=== PATIENT | female | born 1940 | race Caucasian/White ===

== ENCOUNTER 2016-03-29 06:42 | Day surgery (SDC) | payer MEDICARE, OTHER ==
[2005-12-14 06:33] VITALS: BP 142/69
[2016-03-29] VITALS (9 sets, daily range): BP systolic 111–162; BP diastolic 56–85; PULSE 59–77; TEMP 97.8–98
[~2016-03-29] VITALS: Ht 165.2 cm; Wt 91.0 kg
[~2016-03-29 06:42] MED LIST: ALTACE 10MG TAB10 MG PO; ALTACE5 M1 PO; AMIODARONE200 MG PO; AMLOPIDINE PO; ASPIRIN E.C. 8181 MG PO; BACTRIM DS 8001 TAB PO; CALCIUM CITRAT200 MG PO; CELEXA20 MG PO; COUMADIN4 MG PO; COUMADIN5 MG PO; COUMADIN7.5 MG PO; Cartia XT PO; ELIQUIS 5MG PO; GLUCOPHAGE1000 MG PO; LANTUS100 U/ML SQ; LASIX 20MG TABL20 MG PO; MULTAQ400 MG PO; NATEGLINIDE120 MG PO; NIGHT-TIME COL300 ML PO; NORVASC 5MG5 MG/TAB PO; PLAVIX 75MG TAB75 MG PO; PRAVACHOL 20MG20 MG PO; STARLIX120 MG PO; TAZTIA240; VITAMIN D1000 IU PO; ZOCOR40 MG PO
[2016-03-29 07:45] LABS: INR 1.7 (0.8-3.0); PROTHROMBIN TIME 19.1 SECONDS (9.7-12.8)
[2016-03-29 07:47] LABS: HEMATOCRIT 43.3 % (37.0-47.0); HEMOGLOBIN 13.9 g/dl (12.5-16.0); MEAN CELL VOLUME 89 fl (80.0-100.0); MEAN CORPUSCULAR HEMOGLOBIN 29 pg (27.0-31.0); MEAN CORPUSCULAR HGB CONC 32 g/dl (33.0-37.0); MEAN PLATELET VOLUME 12.3 fl (7.4-10.4); PLATELET COUNT 143 K/mm3 (130-400); RED BLOOD COUNT 4.87 M/mm3 (4.10-5.30); REDCELL DISTRIBUTION WIDTH-CV 12.9 % (11.5-14.5)
[2016-03-29 08:52] LABS: CALCIUM 9.5 mg/dL (8.4-10.2); CREATININE, serum 1.03 mg/dL (0.52-1.25); POTASSIUM 3.7 mmol/L (3.4-5.0)
[2016-03-30 00:04] VITALS: BP 146/56; PULSE 73; TEMP 97.6
[2016-03-30 03:46] VITALS: BP 121/58; PULSE 69; TEMP 97.3
[2016-03-30 07:48] VITALS: BP 139/69; PULSE 58; TEMP 98
[2016-03-30] MEDS ORDERED: CEPHALEXIN500 M1 PO (10:32)
== END 2016-03-30 12:29 | disposition home or self-care (01) ==
LOC: EUO 06:42 → COL.RAD 07:00 → MEDICAL 11:22 → EUO 03-30 12:29
PROVIDERS: Internal Medicine Cardiovascular Disease
DX: T82.120A Displacement of cardiac electrode, initial encounter (principal); I48.2 Chronic atrial fibrillation; Z79.01 Long term (current) use of anticoagulants; I27.2 Other secondary pulmonary hypertension; I49.5 Sick sinus syndrome; I08.3 Combined rheumatic disorders of mitral, aortic and tricuspid valves
CPT/HCPCS: OP; C1769; C1894; C1898; J0690; J1815; J2250; J3010; J3370; J7030; Q9967

== ENCOUNTER 2017-07-23 16:53 | Observation (INO) | payer MEDICARE, OTHER ==
[~2017-07-23] VITALS: Ht 165.1 cm; Wt 87.8 kg
[~2017-07-23 16:53] MED LIST changes: +CARTIA XT240 MG PO; +CELEXA 20MG20 MG/TAB PO; -CELEXA20 MG PO; +CEPHALEXIN500 M1 PO; -Cartia XT PO
[2017-07-23 17:19] LABS: BASO # 0.1 (0.0-0.2); BASO % 0.8 % (0.0-2.0); EOS # 0.2 (0.0-0.7); EOS % 1.7 % (0-4.0); GRAN % 67.2 % (42.2-75.2); HEMATOCRIT 40.7 % (37.0-47.0); HEMOGLOBIN 13.8 g/dl (12.5-16.0); LYMPH # 1.9 (1.2-3.4); LYMPH % 21.6 % (20.0-51.0); MEAN CELL VOLUME 90 fl (80.0-100.0); MEAN CORPUSCULAR HEMOGLOBIN 31 pg (27.0-31.0); MEAN CORPUSCULAR HGB CONC 34 g/dl (33.0-37.0); MEAN PLATELET VOLUME 11.6 fl (7.4-10.4); MONO # 0.8 (0.1-0.6); MONO % 8.5 % (1.7-9.3); PLATELET COUNT 143 K/mm3 (130-400); REDCELL DISTRIBUTION WIDTH-CV 13.5 % (11.5-14.5)
[2017-07-23 17:24] LABS: INR 1.8 (0.8-3.0); PROTHROMBIN TIME 20.2 SECONDS (9.7-12.8)
[2017-07-23 17:27] LABS: PARTIAL THROMBOPLASTIN TIME 43.3 SECONDS (26.0-37.0)
[2017-07-23 17:38] LABS: ALANINE AMINOTRANSFERASE 28 U/L (9-52); ALBUMIN 3.6 gm/dL (3.5-5.0); ALKALINE PHOSPHATASE 72 U/L (50-136); ANION GAP 10 mmol/L (7-16); AST,SGOT 29 U/L (15-37); BILIRUBIN,TOTAL 0.9 mg/dL (0.0-1.0); BLOOD UREA NITROGEN 22 mg/dL (7-17); CALCIUM 9.5 mg/dL (8.4-10.2); CARBON DIOXIDE 26 mmol/L (22-30); CHLORIDE 103 mmol/L (98-107); CREATININE, serum 1.01 mg/dL (0.52-1.25); GLUCOSE 117 mg/dL (74-106); POTASSIUM 4.2 mmol/L (3.4-5.0); SODIUM 139 mmol/L (137-145); TOTAL PROTEIN 7.2 gm/dL (6.4-8.2)
[2017-07-23 17:42] LABS: COLLECTION METHOD CATHETER
[2017-07-23 17:49] LABS: TROPONIN-I < 0.012 ng/mL (0.000-0.034)
[2017-07-23 17:50] LABS: PH 6 (5-8); SQUAMOUS EPITHELIAL None Seen /hpf; URINE APPEARANCE Clear; URINE BACTERIA Many /hpf; URINE BILIRUBIN Negative (NEGATIVE); URINE BLOOD 1+ (NEGATIVE); URINE COLOR Yellow; URINE GLUCOSE Negative (NEGATIVE); URINE KETONE Negative (NEGATIVE); URINE LEUKOCYTE ESTERASE 1+ (NEGATIVE); URINE NITRATE Negative (NEGATIVE); URINE PROTEIN(semi-quant) Negative (NEGATIVE); URINE RBC 0-2 /hpf; URINE UROBILINOGEN >=4.0 mg/dL (NEGATIVE)
[2017-07-23] MEDS ORDERED: DETROL 2MG TAB2 MG PO (17:56)
[2017-07-23] MEDS ORDERED: FOSAMAX 70MG TA70 MG PO (17:58)
[2017-07-23] MEDS ORDERED: LANTUS100 U/ML SQ (19:37)
[2017-07-23 20:08] VITALS: BP 121/82; PULSE 71; TEMP 97.6
[2017-07-23 23:12] VITALS: BP 116/47; PULSE 70; TEMP 97.8
[2017-07-24 03:47] VITALS: BP 131/51; PULSE 68; TEMP 97.8
[2017-07-24 07:31] LABS: BASO % 0.6 % (0.0-2.0); EOS # 0.1 (0.0-0.7); GRAN # 4.5 (1.4-6.5); GRAN % 66.8 % (42.2-75.2); HEMATOCRIT 41.9 % (37.0-47.0); HEMOGLOBIN 13.5 g/dl (12.5-16.0); LYMPH # 1.5 (1.2-3.4); LYMPH % 23.2 % (20.0-51.0); MEAN CELL VOLUME 91 fl (80.0-100.0); MEAN CORPUSCULAR HEMOGLOBIN 29 pg (27.0-31.0); MEAN CORPUSCULAR HGB CONC 32 g/dl (33.0-37.0); MEAN PLATELET VOLUME 11.6 fl (7.4-10.4); MONO # 0.5 (0.1-0.6); MONO % 7.2 % (1.7-9.3); PLATELET COUNT 145 K/mm3 (130-400); RED BLOOD COUNT 4.61 M/mm3 (4.10-5.30); REDCELL DISTRIBUTION WIDTH-CV 13.2 % (11.5-14.5)
[2017-07-24 07:40] LABS: CALCIUM 8.9 mg/dL (8.4-10.2); CHOLESTEROL RISK RATIO 2.5; CREATININE, serum 0.92 mg/dL (0.52-1.25); POTASSIUM 3.9 mmol/L (3.4-5.0)
[2017-07-24 08:27] VITALS: BP 128/50; PULSE 75; TEMP 97.2
[2017-07-24 12:13] VITALS: BP 138/62; PULSE 79; TEMP 97.5
[2017-07-24 15:55] VITALS: BP 123/55; PULSE 84; TEMP 98.2
[2017-07-24 20:09] VITALS: BP 120/58; PULSE 69; TEMP 98
[2017-07-24 23:23] VITALS: BP 127/75; PULSE 81; TEMP 98.6
[2017-07-25 04:39] VITALS: BP 143/62; PULSE 77; TEMP 97.8
[2017-07-25 08:01] VITALS: BP 116/55; PULSE 94; TEMP 98.5
[2017-07-25] MEDS ORDERED: ELIQUIS 5MG PO ×2 (10:33)
[2017-07-25] MEDS ORDERED: CEPHALEXIN500 M1 PO (10:36)
== END 2017-07-25 13:06 | disposition home or self-care (01) ==
LOC: COL.ER 16:53 → MEDICAL 18:05
PROVIDERS: Emergency Medicine; Nurse Practitioner
DX: G45.9 Transient cerebral ischemic attack, unspecified (principal); N39.0 Urinary tract infection, site not specified; I48.2 Chronic atrial fibrillation; E11.9 Type 2 diabetes mellitus without complications; I27.20 Pulmonary hypertension, unspecified; I10 Essential (primary) hypertension; I08.3 Combined rheumatic disorders of mitral, aortic and tricuspid valves; F32.9 Major depressive disorder, single episode, unspecified; E78.5 Hyperlipidemia, unspecified; Z79.82 Long term (current) use of aspirin; Z79.4 Long term (current) use of insulin; Z79.01 Long term (current) use of anticoagulants; Z88.0 Allergy status to penicillin; Z90.710 Acquired absence of both cervix and uterus; Z90.49 Acquired absence of other specified parts of digestive tract; Z95.0 Presence of cardiac pacemaker; Z83.3 Family history of diabetes mellitus; Z82.3 Family history of stroke; Z82.49 Family history of ischemic heart disease and other diseases of the circulatory system
CPT/HCPCS: A9585; G0378; G0379; G8978-GP; G8979-GP; G8987-GO; G8988-GO; G9163-GN; G9164-GN; J0696; J7030

== ENCOUNTER 2018-10-05 10:19 | Inpatient (IN) | payer MEDICARE, OTHER ==
[2018-10-05] VITALS (433 sets, daily range): BP systolic 134–154; BP diastolic 59–67; PULSE 99–111; TEMP 98.1–98.4; O2SAT 84–100
[~2018-10-05] VITALS: Ht 165.1 cm; Wt 77.0 kg
[~2018-10-05 10:19] MED LIST changes: +DETROL 2MG TAB2 MG PO; +FOSAMAX 70MG TA70 MG PO
[2018-10-05 11:01] LABS: BASO % 0.2 % (0.0-2.0); GRAN # 13.4 (1.4-6.5); GRAN % 94.5 % (42.2-75.2); HEMATOCRIT 43.8 % (37.0-47.0); HEMOGLOBIN 14.2 g/dl (12.5-16.0); LYMPH # 0.3 (1.2-3.4); LYMPH % 1.9 % (20.0-51.0); MEAN CELL VOLUME 89 fl (80.0-100.0); MEAN CORPUSCULAR HEMOGLOBIN 29 pg (27.0-31.0); MEAN CORPUSCULAR HGB CONC 32 g/dl (33.0-37.0); MEAN PLATELET VOLUME 11.9 fl (7.4-10.4); MONO # 0.4 (0.1-0.6); PLATELET COUNT 146 K/mm3 (130-400); RED BLOOD COUNT 4.91 M/mm3 (4.10-5.30); REDCELL DISTRIBUTION WIDTH-CV 13.3 % (11.5-14.5)
[2018-10-05 11:27] LABS: BILIRUBIN,TOTAL 1.5 mg/dL (0.0-1.0); C-REACTIVE PROTEIN 2.4 mg/dL (0.0-0.9); CALCIUM 9.1 mg/dL (8.4-10.2); CREATININE, serum 0.91 (0.52-1.25); POTASSIUM 3.9 mmol/L (3.4-5.0); TOTAL PROTEIN 7.2 gm/dL (6.4-8.2)
[2018-10-05 12:13] LABS: MUCOUS Present /lpf; PH 5 (5-8); SQUAMOUS EPITHELIAL 0-2 /hpf; URINE APPEARANCE Clear; URINE BACTERIA None Seen /hpf; URINE BILIRUBIN Negative (NEGATIVE); URINE BLOOD 1+ (NEGATIVE); URINE COLOR Yellow; URINE GLUCOSE 2+ (NEGATIVE); URINE KETONE 1+ (NEGATIVE); URINE LEUKOCYTE ESTERASE Negative (NEGATIVE); URINE NITRATE Negative (NEGATIVE); URINE PROTEIN(semi-quant) 1+ (NEGATIVE); URINE RBC 0-2 /hpf
[2018-10-05 15:14] LABS: COLLECTION METHOD CATHETER
--- NOTE | 2018-10-05 15:58 | NUR ---
Pt admitted to ICU bed 2 from floor. Pt arrived via stretcher and placed on monitoring tech. Vitals stable upon arrival. Dr. Aguilera notified of Pt admission to unit.
--- NOTE | 2018-10-05 16:19 | NUR ---
PT CAME UP FROM ER WITH HORTENCIA [facility] VIA GURNEY. DR. IZQUIERDO CAME BY TO SEE THE PT AND ADVISED NOT TO TAKE THE PT OFF THE GURNEY UNTIL WE DID THE EKG, IF IT WAS ABNORMAL THE PT WAS GOING TO ICU. CT CALLED AND ASKED HOW THE PT TRANSFERED. ADVISED THAT THE PT WAS ON THE THE ER GURNEY AT THIS TIME AND WAS NOT SURE HOW SHE TRANSFERED. CT ASKED TO LEAVE ON GURNEY AND TAKE HER RIGHT DOWN TO CT. RAMILA BURNETT ADVISED THAT HE NEEDED THE GURNEY BACK. DR. IZQUIERDO CAME IN THE ROOM AND SAW THE EKG RESULTS AND ADVISED THAT SHE WOULD BE TALKING TO DR. AYALA, BUT THE PT NEEDS TO GO TO ICU AND NOT STAY ON THIS FLOOR. WENT WITH HORTENCIA [facility]GRATH TO TAKE PT DOWN TO CT. CALLED CHARGE LOLI AND ADVISED WHAT WAS GOING ON BECAUSE I WAS LEAVING THE FLOOR WITH THE PT. LOLI CHARGE CALLED ME BACK IN ROUTE AND ADVISED THAT SHE RECEIVED A CALL FROM [facility] THAT THE PT WAS GOING TO ICU BED 2. ASSISTED WITH TAKEING PT TO CT FOR A HEAD CT AND PT WAS DONE ASSISTED BACK ON GURNEY AND HELPED ROLL PT TO ICU BED 2, SINCE WE WERE ALREADY THERE. EKG WAS SUPPOSE TO HAVE BEEN DONE IN THE ER THE EKG BEFORE SHE WAS BROUGHT UP TO MEDICAL BECAUSE THAT WAS THE DETERMINING FACTOR OF WHERE SHE WAS GOING TO GO. GAVE REPORT IN ICU TO NATASHA FERRER.
--- NOTE | 2018-10-05 18:00 | NUR ---
Admission assessment complete at this time. Plan of care reviewed at bedside with patient. Additional time taken to address any other needs or concerns. Vitals stable at this time. Denies pain or any other discomfort. Bed in low position, call light within reach, will continue to monitor.
--- NOTE | 2018-10-05 19:00 | NUR ---
Report received from Eulogio. Pt resting in bed with glasses on at this time with no complaints noted.
--- NOTE | 2018-10-05 19:06 | NUR ---
Bedside report given to NABIL Muhammad.
--- NOTE | 2018-10-05 19:45 | NUR ---
Pt assessment complete. Glasses in place on face. Pt denies any pain although reports aching in the right leg with no abnormal assessment findings to location at this time. Will continue to assess aching. Pt was noted to have dried crusting to bilateral lower extremities and although refused a bed bath, warm wipes were used in order to clean as much as possible off skin. Abrasions are noted to anterior feet as well as bilateral upper arms with generalized scattered bruising with various sizes and degrees of healing. Brief was checked and dry at this time.
[2018-10-06] VITALS (326 sets, daily range): BP systolic 93–152; BP diastolic 40–89; PULSE 64–101; TEMP 97.6–98.7; O2SAT 87–100
[2018-10-06 05:31] LABS: BASO % 0.4 % (0.0-2.0); GRAN # 7.1 (1.4-6.5); GRAN % 86.2 % (42.2-75.2); HEMOGLOBIN 12.9 g/dl (12.5-16.0); LYMPH # 0.4 (1.2-3.4); LYMPH % 4.5 % (20.0-51.0); MEAN CELL VOLUME 91 fl (80.0-100.0); MEAN CORPUSCULAR HEMOGLOBIN 29 pg (27.0-31.0); MEAN CORPUSCULAR HGB CONC 32 g/dl (33.0-37.0); MEAN PLATELET VOLUME 11.8 fl (7.4-10.4); MONO # 0.7 (0.1-0.6); MONO % 8.5 % (1.7-9.3); PLATELET COUNT 109 K/mm3 (130-400); RED BLOOD COUNT 4.41 M/mm3 (4.10-5.30); REDCELL DISTRIBUTION WIDTH-CV 13.5 % (11.5-14.5)
--- NOTE | 2018-10-06 07:15 | NUR ---
Report provided to Michael FERRER.
[2018-10-06] MEDS ORDERED: ELIQUIS 5MG PO (07:56)
--- NOTE | 2018-10-06 09:00 | NUR ---
Pt's brother called to cofirm Eliquis dose and frequency Hazel Graff (daughter) called and updated as well. Questions invited and answered
[2018-10-06 09:23] LABS: ALBUMIN 3.1 gm/dL (3.5-5.0); BILIRUBIN,TOTAL 0.7 mg/dL (0.0-1.0); CALCIUM 7.7 mg/dL (8.4-10.2); CREATININE, serum 0.81 (0.52-1.25); POTASSIUM 3.2 mmol/L (3.4-5.0); TOTAL PROTEIN 5.8 gm/dL (6.4-8.2)
--- NOTE | 2018-10-06 13:14 | NUR ---
Report phoned to NABIL Garcias on [facility] - pt to transfer rm [id number] once room is clean
--- NOTE | 2018-10-06 13:38 | NUR ---
SW met with the patient to discuss a discharge plan. The pt lives in [place] with her brother/DPOA-HC, Colt Horton. The pt has a cane and a walker. The pt reports she takes sponge baths and uses briefs and has never had home health services. The pt's PCP is Dr. Gray and pt receives medications from [facility]. Patient reports her son Kulwinder Martinez used to hop picker medications but she states her son recently . SW to follow up with [facility] to inquire about medication delivery. The pt has advanced directives in the EMR. SW will continue to follow to assist with discharge recommendations.
--- NOTE | 2018-10-06 14:30 | NUR ---
Pt up to medical unit from ICU. Pt alert. Pt rates pain 8/10 headache and right leg. Pt denies SOB at rest. Pt IV site had leaked some so site cleansed and flushed and IV patent and redressed. NO redness or infiltration at site noted. 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 Pt has call light in reach and denies needs at this time. Medications reviewed to the best of pt's knowledge.
--- NOTE | 2018-10-06 17:01 | NUR ---
Updated Dr. Townsend on pt's K+ level and orders placed by Dr. Townsend.
--- NOTE | 2018-10-06 18:58 | NUR ---
Pt incontinent of urine and ragini cares provided. Pt resting in bed with call light in reach. Ordered Glucerna shake for pt.
--- NOTE | 2018-10-06 18:59 | NUR ---
Pt report given to Laverne FERRER.
--- NOTE | 2018-10-06 20:00 | NUR ---
Shift assessment complete. Pt resting in bed, awake, a&o c some int confused statements, cooperative c cares. Pt denies pain or other c/o at this time. IV patent. Tele in place. Pt denies needs. Call light in reach, bed alarm on. Will continue to monitor.
[2018-10-07] VITALS (10 sets, daily range): BP systolic 11–128; BP diastolic 52–68; PULSE 71–104; TEMP 97.4–98.3
--- NOTE | 2018-10-07 04:49 | NUR ---
Pt resting in bed, condition unchanged. Pt had 1x episode of vommiting at 0330, pt reports sudden onset nausea then vommited moderate amount of dark brown emesis in bed. Emesis appeared et smelled like ensure pt had been drinking. Pt also incont urine et loose BM at that time. Pt denied continued nausea p episode. Linnens changed et complete bed bath provided. Pt has otherwise rested well c very few needs this shift. Denies needs at this time. Denies continued nausea. Call light in reach, bed alarm on.
--- NOTE | 2018-10-07 08:00 | NUR ---
Assessment completed, alert/oriented, vital signs stable, patient is having coffee ground emesis this morning/ notified hospitalist and garto-occult sample collected, heart RRR, lung sCTA/ no resp.difficulty, patient has poor veins and we are unable to get lab or start a new IV at this time/ I have obtained an order for PICC line placmenet and notified AIVS, chriss was given an patient is resting quietly at thi stime, will continue to monitor
[2018-10-07 08:04] LABS: GASTROCCULT NEGATIVE; pH GASTRIC CONTENTS 3
--- NOTE | 2018-10-07 09:19 | NUR ---
SW rounded with the team. A GI consult is being ordered. SW will continue to follow to assist with a safe discharge.
[2018-10-07 13:25] LABS: BASO % 0.3 % (0.0-2.0); EOS # 0.2 (0.0-0.7); GRAN # 6.3 (1.4-6.5); GRAN % 83.4 % (42.2-75.2); HEMATOCRIT 37.7 % (37.0-47.0); HEMOGLOBIN 12.2 g/dl (12.5-16.0); LYMPH # 0.5 (1.2-3.4); LYMPH % 6.4 % (20.0-51.0); MEAN CELL VOLUME 90 fl (80.0-100.0); MEAN CORPUSCULAR HEMOGLOBIN 29 pg (27.0-31.0); MEAN CORPUSCULAR HGB CONC 32 g/dl (33.0-37.0); MONO # 0.6 (0.1-0.6); MONO % 7.6 % (1.7-9.3); PLATELET COUNT 100 K/mm3 (130-400); RED BLOOD COUNT 4.19 M/mm3 (4.10-5.30); REDCELL DISTRIBUTION WIDTH-CV 13.9 % (11.5-14.5)
[2018-10-07 13:44] LABS: CALCIUM 7.8 mg/dL (8.4-10.2); CREATININE, serum 0.7 (0.52-1.25); POTASSIUM 3.5 mmol/L (3.4-5.0)
--- NOTE | 2018-10-07 20:00 | NUR ---
Patient assessed at this time. Alert and oriented x 4. Patient drowsy, but awakens easily to verbal stimuli. Double lumen PICC to RUE. NS running at 75 ml/hr. Denies having pain and discomfort. Denies having SOB and dyspnea. Oxygen on at 2 L/min via NC. LS CTA in upper lobes, diminished in lower lobes. Heart rate irregular. Telemetry in place. Heart with regular rate and rhythm. Capillary refill less than 3 seconds. Non-tenting skin turgor. BS hyperactive x 4. Abdomen soft and non-tender. Patient incontinent of bowel and bladder. Perineal hygiene care provided. Patient continues to have loose stools 1+ edema to BLE. Patient states that she is tired. Denies having any questions, needs, or concerns at this time. Resting in bed with call light within reach.
--- NOTE | 2018-10-07 22:51 | NUR ---
Telemetry called. Patient's HR has been going into the 130s. Called [facility]. Order for STAT EKG. EKG is being obtained at this time.
--- NOTE | 2018-10-07 23:16 | NUR ---
EKG back, and called to [facility]. New order received for 5 mg Metoprolol IV now. STAT labs drawn via PICC and Metoprolol given as ordered. Awaiting lab results at this time.
[2018-10-07 23:26] LABS: BASO % 0.3 % (0.0-2.0); EOS # 0.1 (0.0-0.7); EOS % 1.1 % (0-4.0); GRAN # 7.1 (1.4-6.5); GRAN % 88.3 % (42.2-75.2); HEMATOCRIT 36.8 % (37.0-47.0); HEMOGLOBIN 11.7 g/dl (12.5-16.0); LYMPH # 0.3 (1.2-3.4); LYMPH % 3.9 % (20.0-51.0); MEAN CELL VOLUME 92 fl (80.0-100.0); MEAN CORPUSCULAR HEMOGLOBIN 29 pg (27.0-31.0); MEAN CORPUSCULAR HGB CONC 32 g/dl (33.0-37.0); MEAN PLATELET VOLUME 11.8 fl (7.4-10.4); MONO # 0.5 (0.1-0.6); MONO % 6.1 % (1.7-9.3); PLATELET COUNT 83 K/mm3 (130-400); RED BLOOD COUNT 4.02 M/mm3 (4.10-5.30); REDCELL DISTRIBUTION WIDTH-CV 13.9 % (11.5-14.5)
[2018-10-07 23:36] LABS: CALCIUM 7.5 mg/dL (8.4-10.2); CREATININE, serum 0.64 (0.52-1.25); MAGNESIUM 1.8 mg/dL (1.6-2.3); POTASSIUM 3.9 mmol/L (3.4-5.0)
--- NOTE | 2018-10-07 23:50 | NUR ---
VS: 110/58 HR upper 90s to upper 100s. Labs back and called to [facility]. New order for 1 gram Magnesium. Started at this time. Patient reports she is feeling ok. Voices no questions, needs, or concerns at this time. Resting in bed with eyes closed. Call light within reach.
[2018-10-08 05:13] VITALS: BP 141/66; PULSE 96; TEMP 97.6
--- NOTE | 2018-10-08 05:44 | NUR ---
Patient has been having loose stools throughout the night. Denies having upset stomach and pain. Sample sent to lab for GI panel that had not been received. NS continues to run at 75 ml/hr. Voices no questions, needs, or concerns. Resting in bed with eyes closed. Call light is within reach.
[2018-10-08 06:35] LABS: BASO % 0.3 % (0.0-2.0); EOS # 0.1 (0.0-0.7); EOS % 1.6 % (0-4.0); GRAN # 6.2 (1.4-6.5); GRAN % 85.3 % (42.2-75.2); HEMATOCRIT 37.8 % (37.0-47.0); HEMOGLOBIN 11.9 g/dl (12.5-16.0); LYMPH # 0.5 (1.2-3.4); LYMPH % 7.1 % (20.0-51.0); MEAN CELL VOLUME 92 fl (80.0-100.0); MEAN CORPUSCULAR HEMOGLOBIN 29 pg (27.0-31.0); MEAN CORPUSCULAR HGB CONC 32 g/dl (33.0-37.0); MEAN PLATELET VOLUME 11.8 fl (7.4-10.4); MONO # 0.4 (0.1-0.6); MONO % 5.3 % (1.7-9.3); PLATELET COUNT 100 K/mm3 (130-400); RED BLOOD COUNT 4.09 M/mm3 (4.10-5.30); REDCELL DISTRIBUTION WIDTH-CV 13.9 % (11.5-14.5)
[2018-10-08 06:50] LABS: CALCIUM 7.6 mg/dL (8.4-10.2); CREATININE, serum 0.67 (0.52-1.25); POTASSIUM 3.7 mmol/L (3.4-5.0)
[2018-10-08 07:31] VITALS: BP 118/58; PULSE 103; TEMP 97.9
[2018-10-08 11:09] VITALS: BP 114/50; PULSE 99; TEMP 99
--- NOTE | 2018-10-08 11:17 | NUR ---
SW attended clinical rounds. Both the doctor and PT are recommended post acute rehab. Patient is not agreeable to SNF and reports "I do not think I need it." SW informed patient of the benefits of SNF and also that at this time, going home is not a safe option. Patient continued to refuse. Patient was given medicare.gov resource list but did not choose any facilites. Colleen requested SW contact her brother, Arias, to inform him of recommendations. ABRAHAM attempted to contact patient's brother, Arias ([phone]). SW left a message.
--- NOTE | 2018-10-08 13:36 | NUR ---
ABRAHAM met with patient and brother/DPOA, Colt, to discuss discharge recommendations. ABRAHAM explained to Colt that patient preet benefit from continued therapy in a facility and that returning home is not a safe option at this time. Patient's daughter, Hazel, was also involved via phone. Both aHzel and Colt would like patient to go to a SNF for a skilled stay. After speaking with both Hazel and Colt, patient is agreeable. Patient and Colt reviewed medicare.gov resource list and chose 1. [facility] and 2. [facility]. Patient requested Colt sign choice form. Colt signed and was provided a copy. ABRAHAM faxed referrals and contacted both facilities.
--- NOTE | 2018-10-08 15:11 | NUR ---
ABRAHAM spoke with [facility]. Patient was accepted and they can admit tomorrow.
--- NOTE | 2018-10-08 15:15 | NUR ---
SW left message with patient's brother, Colt, informing him of patient acceptance to [facility]. SW also informed patient.
[2018-10-08 16:46] VITALS: BP 122/54; PULSE 91; TEMP 98.3
--- NOTE | 2018-10-08 18:06 | NUR ---
Patient is in bed, has a visitor. Was assisted in ordering supper. No needs verbalized. Call light and personal items are within reach.
[2018-10-08 20:33] VITALS: BP 147/62; PULSE 89; TEMP 99.2
[2018-10-09 00:11] VITALS: BP 119/64; PULSE 77; TEMP 99.2
--- NOTE | 2018-10-09 01:30 | NUR ---
Patient has been denying having pain and discomfort. Has been on room air so far this shift. Voices no questions, needs, or concerns at this time. Resting in bed with call light within reach. See assessment.
[2018-10-09 03:40] VITALS: BP 128/78; PULSE 72; TEMP 97.9
--- NOTE | 2018-10-09 05:18 | NUR ---
Patient has denied having pain and discomfort. Patient has not had any diarrhea so far this shift. NS continues to run at 75 ml/hr to PICC to E. Voices no questions, needs, or concerns at this time. Resting in bed wtih call light within reach.
[2018-10-09 06:14] LABS: BASO % 0.4 % (0.0-2.0); EOS # 0.1 (0.0-0.7); EOS % 1.8 % (0-4.0); GRAN # 6.2 (1.4-6.5); GRAN % 80.3 % (42.2-75.2); HEMATOCRIT 34.1 % (37.0-47.0); LYMPH # 0.7 (1.2-3.4); LYMPH % 8.8 % (20.0-51.0); MEAN CELL VOLUME 90 fl (80.0-100.0); MEAN CORPUSCULAR HEMOGLOBIN 29 pg (27.0-31.0); MEAN CORPUSCULAR HGB CONC 32 g/dl (33.0-37.0); MEAN PLATELET VOLUME 11.4 fl (7.4-10.4); MONO # 0.6 (0.1-0.6); MONO % 8.2 % (1.7-9.3); PLATELET COUNT 95 K/mm3 (130-400)
[2018-10-09 06:24] LABS: CREATININE, serum 0.7 (0.52-1.25)
[2018-10-09 06:25] LABS: CALCIUM 7.8 mg/dL (8.4-10.2); POTASSIUM 3.9 mmol/L (3.4-5.0)
--- NOTE | 2018-10-09 07:00 | NUR ---
Report received from Sharda, NR. PT in bed resting with eyes closed, will continue to monitor.
[2018-10-09 07:16] VITALS: BP 126/55; PULSE 83; TEMP 97.9
[2018-10-09] MEDS ORDERED: CARDIZEM CD 30300 MG PO (07:22)
[2018-10-09] MEDS ORDERED: ASPIRIN E.C. 8181 MG PO (07:23)
--- NOTE | 2018-10-09 09:25 | NUR ---
Assessment charted. Pt in bed resting, awakens upon verbal stimulation but states she feels tired today. Denies any pain, oriented x4. Has little appetite, states she is full from OJ she drank this am. Hospitalist aware of low WBG this am. PICC to [facility] good blood return and flush. Will continue to monitor.
[2018-10-09] MEDS ORDERED: NOVOLOG 100U100 U/M1 SQ (09:34)
[2018-10-09] MEDS ORDERED: PROTONIX 40MG T40 MG PO (09:46)
[2018-10-09] MEDS ORDERED: CLEOCIN HCL300 MG PO (09:48)
[2018-10-09 11:12] VITALS: BP 115/52; PULSE 91; TEMP 97.3
--- NOTE | 2018-10-09 11:29 | NUR ---
ABRAHAM attended clinical rounds. Patient will discharge today to SNF. [facility] is unable to accept patient today. ABRAHAM spoke with patient and brother, Colt, about this. Patient and brother are agreeable with patient going to her second choice, [facility]. ABRAHAM contacted Thiago with [facility] and informed him of the change. Thiago reports they can accept today. Thiago will contact ABRAHAM with a time for transportation. ABRAHAM presented IM to patient. Patient verbalized understanding, signed and did not want a copy.
[2018-10-09 13:34] VITALS: BP 115/52; PULSE 91; TEMP 97.3
--- NOTE | 2018-10-09 14:00 | NUR ---
Report called to nurse at [facility] who will resume care of patient. Discharge/transfer packet given to [facility] transport staff. Pt left via w/c with [facility] staff and all belongings. PICC removed by PICC team. Criteria met.
== END 2018-10-09 13:45 | DRG 871 ==
LOC: COL.ER 10:19 → MEDICAL 13:06 → ICU 15:57 → MEDICAL 10-06 14:36
PROVIDERS: Family Medicine; Internal Medicine Gastroenterology; Nurse Practitioner Family; Physician Assistant; ADMIT Family Medicine
PROC: 0DJ08ZZ Inspection of Upper Intestinal Tract, Via Natural or Artificial Opening Endoscopic (ICD-10-PCS; principal; 2018-10-07 13:30)
DX: A41.9 Sepsis, unspecified organism (principal); J15.9 Unspecified bacterial pneumonia; K29.71 Gastritis, unspecified, with bleeding; I48.91 Unspecified atrial fibrillation; I69.922 Dysarthria following unspecified cerebrovascular disease; I27.20 Pulmonary hypertension, unspecified; E78.5 Hyperlipidemia, unspecified; E87.6 Hypokalemia; K21.0 Gastro-esophageal reflux disease with esophagitis; K44.9 Diaphragmatic hernia without obstruction or gangrene; K22.8 Other specified diseases of esophagus; F32.9 Major depressive disorder, single episode, unspecified; I10 Essential (primary) hypertension; N32.81 Overactive bladder; M81.0 Age-related osteoporosis without current pathological fracture; E11.65 Type 2 diabetes mellitus with hyperglycemia; Z79.01 Long term (current) use of anticoagulants; Z79.82 Long term (current) use of aspirin; Z88.0 Allergy status to penicillin; D69.6 Thrombocytopenia, unspecified
CPT/HCPCS: 99231-AI; 99232-AI; 99233-AI; 99239; A4216; C1751; C9113; J0696; J1815; J2250; J2405; J3010; J3475; J3480; J7030

== ENCOUNTER → 2018-10-24 | Outpatient (CLI) | payer MEDICARE, OTHER ==
[~2018-10-24] MED LIST changes: +CARDIZEM CD 30300 MG PO; +CLEOCIN HCL300 MG PO; +NOVOLOG 100U100 U/M1 SQ; +PROTONIX 40MG T40 MG PO
[2018-10-24 12:43] LABS: BASO # 0.1 (0.0-0.2); BASO % 1.1 % (0.0-2.0); EOS # 0.4 (0.0-0.7); EOS % 5.2 % (0-4.0); GRAN # 4.8 (1.4-6.5); GRAN % 67.5 % (42.2-75.2); LYMPH # 1.1 (1.2-3.4); LYMPH % 15.2 % (20.0-51.0); MEAN CELL VOLUME 91 fl (80.0-100.0); MEAN CORPUSCULAR HEMOGLOBIN 29 pg (27.0-31.0); MEAN CORPUSCULAR HGB CONC 32 g/dl (33.0-37.0); MEAN PLATELET VOLUME 11.6 fl (7.4-10.4); MONO # 0.8 (0.1-0.6); MONO % 10.6 % (1.7-9.3); PLATELET COUNT 228 K/mm3 (130-400); RED BLOOD COUNT 3.81 M/mm3 (4.10-5.30); REDCELL DISTRIBUTION WIDTH-CV 14.5 % (11.5-14.5)
[2018-10-24 12:54] LABS: CALCIUM 8.8 mg/dL (8.4-10.2); CREATININE, serum 0.79 (0.52-1.25); POTASSIUM 4.5 mmol/L (3.4-5.0)
[2018-10-24 12:57] LABS: HEMATOCRIT 34.5 % (37.0-47.0)
== END ==
LOC: ZLAB.STJ 10:53 → ZCOL.LAB 10:53
PROVIDERS: Family Medicine
DX: I10 Essential (primary) hypertension (principal)

== ENCOUNTER 2019-01-24 17:48 | Inpatient (IN) | payer MEDICARE, OTHER ==
[~2019-01-24] VITALS: Ht 165.1 cm; Wt 83.2 kg
[2019-01-24 19:03] LABS: COLLECTION METHOD CATHETER
[2019-01-24 19:15] LABS: BASO # 0.1 (0.0-0.2); BASO % 0.7 % (0.0-2.0); EOS # 0.4 (0.0-0.7); EOS % 4.4 % (0-4.0); GRAN # 6.9 (1.4-6.5); GRAN % 70.8 % (42.2-75.2); HEMATOCRIT 39.8 % (37.0-47.0); HEMOGLOBIN 12.2 g/dl (12.5-16.0); LYMPH # 1.4 (1.2-3.4); LYMPH % 14.2 % (20.0-51.0); MEAN CELL VOLUME 86 fl (80.0-100.0); MEAN CORPUSCULAR HEMOGLOBIN 26 pg (27.0-31.0); MEAN CORPUSCULAR HGB CONC 31 g/dl (33.0-37.0); MEAN PLATELET VOLUME 12.5 fl (7.4-10.4); MONO % 9.7 % (1.7-9.3); PLATELET COUNT 146 K/mm3 (130-400); RED BLOOD COUNT 4.65 M/mm3 (4.10-5.30); REDCELL DISTRIBUTION WIDTH-CV 14.7 % (11.5-14.5)
[2019-01-24 19:15] LABS: INR 2.1 (0.8-3.0)
[2019-01-24 19:25] LABS: ALANINE AMINOTRANSFERASE 10 U/L (9-52); ALBUMIN 3.7 gm/dL (3.5-5.0); ALKALINE PHOSPHATASE 91 U/L (50-136); ANION GAP 5 mmol/L (7-16); AST,SGOT 23 U/L (15-37); BILIRUBIN,TOTAL 0.7 mg/dL (0.0-1.0); BLOOD UREA NITROGEN 18 mg/dL (7-17); CARBON DIOXIDE 29 mmol/L (22-30); CHLORIDE 106 mmol/L (98-107); CREATINE KINASE 36 U/L (30-135); CREATININE, serum 0.98 (0.52-1.25); GLUCOSE 138 mg/dL (74-106); POTASSIUM 3.7 mmol/L (3.4-5.0); SODIUM 139 mmol/L (137-145); TOTAL PROTEIN 7.1 gm/dL (6.4-8.2)
[2019-01-24 19:26] LABS: C-REACTIVE PROTEIN < 0.5 mg/dL (0.0-0.9)
[2019-01-24 19:29] LABS: MUCOUS Present /lpf; PH 5 (5-8); SQUAMOUS EPITHELIAL 0-2 /hpf; URINE APPEARANCE Clear; URINE BACTERIA Rare /hpf; URINE BILIRUBIN Negative (NEGATIVE); URINE BLOOD 1+ (NEGATIVE); URINE COLOR Yellow; URINE GLUCOSE Negative (NEGATIVE); URINE KETONE Negative (NEGATIVE); URINE LEUKOCYTE ESTERASE Trace (NEGATIVE); URINE NITRATE Positive (NEGATIVE); URINE PROTEIN(semi-quant) Negative (NEGATIVE); URINE RBC 0-2 /hpf
[2019-01-24 19:32] LABS: TROPONIN-I < 0.012 ng/mL (0.000-0.035)
--- NOTE | 2019-01-24 21:45 | NUR ---
Pt arrived to room 312, transferred per stretcher by ED staff. Pt awake, a&o, cooperative. Pt oriented to room, unit policies et current POC. Questions invited et answered, pt verbalizes understanding. INT patent. Pt denies needs at this time. Call light in reach, bed alarm on. Will continue c admit process.
[2019-01-24 23:08] VITALS: BP 116/56; PULSE 64; TEMP 97.6
[2019-01-25 04:23] VITALS: BP 128/53; PULSE 63; TEMP 97.5
[2019-01-25 05:32] LABS: BASO # 0.1 (0.0-0.2); BASO % 0.9 % (0.0-2.0); EOS # 0.4 (0.0-0.7); EOS % 5.1 % (0-4.0); GRAN # 4.5 (1.4-6.5); GRAN % 66.2 % (42.2-75.2); LYMPH # 1.3 (1.2-3.4); LYMPH % 18.9 % (20.0-51.0); MEAN CELL VOLUME 85 fl (80.0-100.0); MEAN CORPUSCULAR HEMOGLOBIN 27 pg (27.0-31.0); MEAN CORPUSCULAR HGB CONC 31 g/dl (33.0-37.0); MEAN PLATELET VOLUME 11.9 fl (7.4-10.4); MONO # 0.6 (0.1-0.6); MONO % 8.8 % (1.7-9.3); PLATELET COUNT 135 K/mm3 (130-400); RED BLOOD COUNT 4.14 M/mm3 (4.10-5.30); REDCELL DISTRIBUTION WIDTH-CV 14.7 % (11.5-14.5)
[2019-01-25 05:34] LABS: HEMATOCRIT 35.2 % (37.0-47.0)
[2019-01-25 05:40] LABS: CALCIUM 8.7 mg/dL (8.4-10.2); CREATININE, serum 0.91 (0.52-1.25); POTASSIUM 3.5 mmol/L (3.4-5.0)
--- NOTE | 2019-01-25 08:00 | NUR ---
Seen patient awake, lying in bed. Alert and oriented. With brace on her right leg. Verbalized pain on her right leg with pain score of 4/10. PRN pain meds last given at 0340. Will re-assess her pain again. Briefs changed and perineal care done.
[2019-01-25 08:22] VITALS: BP 123/51; PULSE 70; TEMP 98
--- NOTE | 2019-01-25 10:30 | NUR ---
Seen patient's peripheral line with blood. Flushed it with NS, still functioning. Changed dressing and will continue to monitor if bleeding would occur and there would be a need to remove it. Patient verbalized pain on right knee with pain score of 7/10. [place] prn pain given.
[2019-01-25 11:49] VITALS: BP 130/54; PULSE 69; TEMP 98.1
[2019-01-25] MEDS ORDERED: PROTONIX 40MG T40 MG PO (12:08)
[2019-01-25] MEDS ORDERED: LASIX 40MG TABL40 MG PO (12:09)
[2019-01-25] MEDS ORDERED: BASAGLAR K100 UNIT/1 SQ ×2 (12:10→12:11)
--- NOTE | 2019-01-25 12:47 | NUR ---
Client Server Programmer prayed with patient and offered spiritual care.
--- NOTE | 2019-01-25 13:40 | NUR ---
Peripheral line still has bleeding. Removed line at left hand and reinserted at right wrist using G20.
[2019-01-25] MEDS ORDERED: ELIQUIS 5MG PO (14:36)
[2019-01-25] MEDS ORDERED: ASPIRIN 81M81 MG/TA2 PO (14:36)
[2019-01-25] MEDS ORDERED: MYRBETR25MG PO (14:39)
[2019-01-25 15:26] VITALS: BP 122/56; PULSE 67; TEMP 98
--- NOTE | 2019-01-25 18:50 | NUR ---
Endorsed patient to Laverne cnc machinist 2nd shift nurse. Patient is currently eating. Denies any pain.
[2019-01-25 19:33] VITALS: BP 107/83; PULSE 64; TEMP 98.1
--- NOTE | 2019-01-25 20:10 | NUR ---
Shift assessment complete. Pt resting in bed, awake, a&o c int forgetfullness, cooperative c cares. Pt reports continued RLE pain rated "8/10"; PRN Gates admin. Pt denies any other c/o. INT patent. Tele in place. Pt s further needs. Call light in reach, bed alarm on. Will continue to monitor.
[2019-01-25 23:27] VITALS: BP 121/40; PULSE 64; TEMP 97.5
[2019-01-26 03:59] VITALS: BP 144/48; PULSE 62; TEMP 97.8
[2019-01-26 08:17] VITALS: BP 117/44; PULSE 61; TEMP 98
--- NOTE | 2019-01-26 09:30 | NUR ---
Patient resting in bed. A&O. VSS. 2L NC O2. No reported SOB. IV CDI. Right side droopiness. Denies pain and discomfort. Patient refused to eat breakfast. Contact precations in place. No further needs expressed from patient. Call light within reach
[2019-01-26 12:51] VITALS: BP 124/45; PULSE 83; TEMP 98.2
--- NOTE | 2019-01-26 16:29 | NUR ---
Plan: To return home. Patient lives with her brother Colt as her roommate and care support [phone], and her EMr contact. Patient also indicated that he is also her DPOA. Patient resides in [facility]. Assess: ABRAHAM met with patient. Patient reports that she uses a walker and .5l of oxygen a day. Patient reports that her Primary care physician is Dr Bradford, and she has a follow up appointment with him later this month. Patient reports that she gets her medications from [facility] with no concerns. Patient denied having any primary concerns at this time, and she denied a need for HHS at this time. Action: SW received a referral for PT from provider. SW left a HHS list for patient to view in case she decided to utilize services.ABRAHAM will follow up.
[2019-01-26 17:16] VITALS: BP 121/48; PULSE 61; TEMP 98.1
--- NOTE | 2019-01-26 17:43 | NUR ---
Patient has had an uneventful day. Resting in bed most of the shift. Worked with PT and was assisted to the bathroom. VSS. IV CDI. Denies pain and discomfort. Right leg in immobilizer. Nursing staff encouraging PO intake. No further needs expressed from patient. Call light within reach. Contact precautions in place
--- NOTE | 2019-01-26 19:20 | NUR ---
Shift assessment complete. Pt resting in bed, awake, a&o, cooperative c cares. Pt reports continued pain to RLE, rated "6/10"; provided c PRN pain med. Pt denies any other c/o. INT patent. Tele in place. Pt denies further needs. Call light in reach, bed alarm on. Will continue to monitor.
[2019-01-26 20:06] VITALS: BP 142/68; PULSE 72; TEMP 97.8
[2019-01-27 00:58] VITALS: BP 129/54; PULSE 71; TEMP 97.6
[2019-01-27 07:58] VITALS: BP 131/46; PULSE 72; TEMP 97.2
[2019-01-27 09:15] LABS: CALCIUM 8.9 mg/dL (8.4-10.2); CREATININE, serum 0.82 (0.52-1.25)
--- NOTE | 2019-01-27 09:20 | NUR ---
Upon attempting to administer sched IV abx, this nurse finds IV catheter sitting on tray table, tip intact. No bleeding noted at previous site. Pt states, "I don't know what happened to it." Provider notified. Order received to not start new IV.
[2019-01-27 09:22] LABS: BASO # 0.1 (0.0-0.2); BASO % 1.1 % (0.0-2.0); EOS # 0.4 (0.0-0.7); EOS % 6.7 % (0-4.0); GRAN # 4.2 (1.4-6.5); GRAN % 68.8 % (42.2-75.2); HEMOGLOBIN 11.1 g/dl (12.5-16.0); LYMPH # 0.9 (1.2-3.4); LYMPH % 13.8 % (20.0-51.0); MEAN CELL VOLUME 85 fl (80.0-100.0); MEAN CORPUSCULAR HEMOGLOBIN 27 pg (27.0-31.0); MEAN CORPUSCULAR HGB CONC 31 g/dl (33.0-37.0); MEAN PLATELET VOLUME 11.1 fl (7.4-10.4); MONO # 0.6 (0.1-0.6); MONO % 9.3 % (1.7-9.3); PLATELET COUNT 167 K/mm3 (130-400); RED BLOOD COUNT 4.16 M/mm3 (4.10-5.30); REDCELL DISTRIBUTION WIDTH-CV 14.6 % (11.5-14.5)
[2019-01-27 09:24] LABS: HEMATOCRIT 35.5 % (37.0-47.0)
--- NOTE | 2019-01-27 09:30 | NUR ---
Physical therapy is recommending SNF vs HH. SW presented Medicare.gov's list of facilities to the patient. The patient refused and does not want to go to a halfway for a skilled stay. The patient reports she has a folder of exercises she can do at home on her own. assistant guest services manager will continue to follow.
--- NOTE | 2019-01-27 13:32 | NUR ---
SW attended clinical rounds with the team. The patient is refusing a [facility] facility and refusing home health. financial services associate will continue to follow.
[2019-01-27 13:45] VITALS: BP 125/49; PULSE 61; TEMP 97.7
[2019-01-27 15:48] VITALS: BP 140/46; PULSE 69; TEMP 97.5
[2019-01-27] MEDS ORDERED: NORCO 325 MG-51 TAB PO (15:52)
--- NOTE | 2019-01-27 17:09 | NUR ---
The patient is to discharge home today, 01/27. SW met with the patient to review discharge plan to discuss PT recommendations for SNF vs HH and the patient is refusing both. The patient's brother will picker/puller the patient at 6PM. SW made an APS report (#[id number]). There are no additional needs at this time.
--- NOTE | 2019-01-27 17:50 | NUR ---
Discharge instructions reviewed with pt regarding medication, watching weight changes, keeping appointments and exercise recommendations. Pt verbalizes understanding, discharged home, escorted out of facility via WC accompanied by SECURITIES COUNSELOR and pt's brother.
== END 2019-01-27 18:00 | disposition home or self-care (01) | DRG 689 ==
LOC: COL.ER 17:48 → MEDICAL 20:40
PROVIDERS: Emergency Medicine; Nurse Practitioner Family; ADMIT Student in an Organized Health Care Education/Training Program
DX: N39.0 Urinary tract infection, site not specified (principal); I50.33 Acute on chronic diastolic (congestive) heart failure; I48.20 Chronic atrial fibrillation, unspecified; E78.5 Hyperlipidemia, unspecified; F32.9 Major depressive disorder, single episode, unspecified; M81.0 Age-related osteoporosis without current pathological fracture; I27.20 Pulmonary hypertension, unspecified; E87.70 Fluid overload, unspecified; E11.9 Type 2 diabetes mellitus without complications; W06.XXXA Fall from bed, initial encounter; I11.0 Hypertensive heart disease with heart failure; N32.81 Overactive bladder; S82.831A Other fracture of upper and lower end of right fibula, initial encounter for closed fracture; B96.20 Unspecified Escherichia coli [E. coli] as the cause of diseases classified elsewhere; M19.90 Unspecified osteoarthritis, unspecified site; Z79.01 Long term (current) use of anticoagulants; Z86.73 Personal history of transient ischemic attack (TIA), and cerebral infarction without residual deficits; Z95.0 Presence of cardiac pacemaker; Z79.4 Long term (current) use of insulin; Y93.9 Activity, unspecified; Y92.003 Bedroom of unspecified non-institutional (private) residence as the place of occurrence of the external cause; Y99.9 Unspecified external cause status
CPT/HCPCS: 99223-AI; 99232-AI; 99239; A4216; J0696; J1815; J1940; L1846

== ENCOUNTER 2020-03-01 14:46 | Outpatient (CLI) | payer MEDICARE, OTHER ==
[2005-12-14 06:33] VITALS: BP 142/69
[~2020-03-01] VITALS: Ht 165.1 cm; Wt 83.6 kg
[~2020-03-01 14:46] MED LIST changes: +ASPIRIN 81M81 MG/TA2 PO; +BASAGLAR K100 UNIT/1 SQ; +LASIX 40MG TABL40 MG PO; +MYRBETR25MG PO; +NORCO 325 MG-51 TAB PO
[2020-03-01 15:05] VITALS: BP 135/77; PULSE 75; TEMP 97.5
--- NOTE | 2020-03-01 15:45 | NUR ---
Pt tolerates injection without issue. She is assisted back to car by wheelchair. Pt did not have med list, complete med rec was not possible due to poor memory of meds and dosages.
== END 2020-03-01 16:04 | disposition home or self-care (01) ==
LOC: EUO 14:46
DX: M81.0 Age-related osteoporosis without current pathological fracture (principal)
CPT/HCPCS: J0897

== ENCOUNTER 2020-10-26 15:19 | Outpatient (CLI) | payer MEDICARE, OTHER ==
[2005-12-14 06:33] VITALS: BP 142/69
[2020-10-26 16:01] VITALS: BP 134/73; PULSE 62; TEMP 98.5
== END 2020-10-26 16:00 | disposition home or self-care (01) ==
LOC: EUO 15:19
DX: M81.0 Age-related osteoporosis without current pathological fracture (principal)
CPT/HCPCS: J0897

== ENCOUNTER 2021-04-12 11:27 | Outpatient (CLI) | payer MEDICARE, OTHER ==
[2005-12-14 06:33] VITALS: BP 142/69
[~2021-04-12] VITALS: Ht 165.1 cm; Wt 76.8 kg
[2021-04-12 11:41] VITALS: BP 108/68; PULSE 66; TEMP 97.6
[2021-04-12] MEDS ORDERED: PROLIA60 MG/ML SQ (17:22)
[2021-04-12] MEDS ORDERED: COLACE 100100 MG/CAP PO (17:22)
== END 2021-04-12 17:23 | disposition home or self-care (01) ==
LOC: EUO 11:27
DX: M81.0 Age-related osteoporosis without current pathological fracture (principal)
CPT/HCPCS: J0897

== ENCOUNTER 2021-10-12 14:30 | Outpatient (CLI) | payer MEDICARE, OTHER ==
[2005-12-14 06:33] VITALS: BP 142/69
[~2021-10-12] VITALS: Ht 165.1 cm; Wt 75.6 kg
[~2021-10-12 14:30] MED LIST changes: +COLACE 100100 MG/CAP PO; +PROLIA60 MG/ML SQ
[2021-10-12 15:44] VITALS: BP 109/71; PULSE 63; TEMP 98.1
== END 2021-10-12 16:01 ==
LOC: EUO 14:30
DX: M81.0 Age-related osteoporosis without current pathological fracture (principal)
CPT/HCPCS: J0897